=== PATIENT | female | born 1970 | race Caucasian/White ===

== ENCOUNTER 2018-01-29 03:47 | Emergency (ER) | payer OTHER, SELFPAY ==
[~2018-01-29] VITALS: Ht 167.6 cm; Wt 95.3 kg
[2018-01-29 03:58] VITALS: BP 174/86
--- NOTE | 2018-01-29 04:06 | NUR ---
ELOPED PATIENT WAS YELLING AT EDP, WOULDN'T LET EDP TALK. EDP WAS TRYING TO TALK TO PATIENT, UNABLE TO EXAM PATIENT THOROUGHLY. PATIENT STATED, "YOU ARE PISSING ME OFF" PATIENT GOT UP AND LEFT ED, STATING SHE WOULD JUST DRIVE TO [place].
--- NOTE | 2018-01-29 04:06 | NUR ---
ELOPEMENT PT IN ROOM YELLING AT EDP, INTERUPTING EDP, WOULD NOT LISTEN OR ALLOW EDP TO TALK. PT YELLED AT EDP "YOU ARE PISSING ME OFF." PT WOULD NOT ALLOW EDP TO EXAMINE HER THOROUGHLY. PT KEEPS YELLING "YOU ARE PISSING ME OFF."
--- NOTE | 2018-01-29 04:19 | ER.PDOC ---
General Chief Complaint: Sore Throat Stated Complaint: SORE THROAT Time seen by MD: 04:08 Source: patient Exam Limitations: no limitations History of Present Illness Initial Comments 48 year old white male with sore throat and cough for one month. No fever, no chills. Reports greenish sputum Timing/Duration: other (persistent) Associated Symptoms: mod sore throat, toothache (discharge) Allergies: Coded Allergies: No Known Allergies (Unverified , 01/29/18) Past Medical History Medical History: no pertinent history Surgical History: Social History Smoking: cigarettes, greater than 1 pack/day Alcohol Use: none Drug Use: none Constitutional: no symptoms reported Eyes: no symptoms reported Ears: no symptoms reported Nose: congestion Mouth: see HPI Throat: see HPI Respiratory: see HPI Cardiovascular: no symptoms reported Gastrointestinal: no symptoms reported Musculoskeletal: no symptoms reported Skin: no symptoms reported Neurological: no symptoms reported Hematologic/Lymphatic: no symptoms reported Immunological/Allergic: no symptoms reported Physical Exam General Appearance: alert, no distress Head/Neck: head nml inspection, neck nml inspection, trachea midline, no lymphadenopathy, thyroid nml Eyes: eyes nml inspection, PERRL, no nystagmus Mouth: lips, gums nml, no drooling, no thrush, gum swelling Throat: pharynx nml, voice nml, no airway problems Ears/Nose: nml inspection Respiratory: no resp. distress, lungs clear CVS: reg. rate & rhythm, heart sounds nml Abdomen: non-tender, no organomegaly Extremities: non-tender, ROM nml Skin Exam: Normal Color, Warm/Dry NEURO/PSYCH: oriented X3, mood/effect nml Comments Patient was rude, argumentative. When I told patient that there was no redness or exudates in her throat that is consistent with strep, she started screaming that "you better use your glasses.", "you are telling me that there is nothing wrong with me?" I tried to explain to patient that there is no reason to check for strep and she got mad. Patient told me that" you are starting to piss me off." in a very disrespectful way. I advised patient to take OTC alleve for pain control. Departure Time of Disposition: 04:18 Disposition: 01 HOME, SELF-CARE Impression: Primary Impression: Acute upper respiratory infection Additional Impression: Tobacco use Condition: Stable Referrals: PCP,UNKNOWN (PCP) PRIMARY CARE PROVIDER Additional Instructions: Advised warm saline gargle Follow up dentist/PCP RTER prn May use OTC pain medications Duration or Time Spent with Pa: 10 BENITO BABCOCK MD January 29, 2018 04:19
== END 2018-01-29 04:06 | disposition left against medical advice (07) ==
LOC: ER 03:47
DX: J06.9 Acute upper respiratory infection, unspecified (principal); K08.89 Other specified disorders of teeth and supporting structures; F17.210 Nicotine dependence, cigarettes, uncomplicated
CPT/HCPCS: 99281